=== PATIENT | female | born 1985 ===

== ENCOUNTER 2019-11-27 15:23 | Emergency (ER) | payer OTHER ==
--- NOTE | 2019-11-27 15:54 | UC ---
Lower Extremity/Ankle HPI - HPI Summary HPI Summary: 33 yo female presents with RIGHT 5th toe injury. 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 Toenail bent backwards and started bleeding. She bandaged the area and came to . Currently is ambulatory with little pain. Pain at toenail, but no toe pain. - History of Current Complaint Stated Complaint: TOE INJURY Time Seen by Provider: 11/27/19 15:54 Hx Obtained From: Patient Onset/Duration: Sudden Onset Severity Initially: Moderate Severity Currently: Mild Pain Intensity: 2 Pain Scale Used: 0-10 Numeric - Allergies/Home Medications Allergies/Adverse Reactions: Allergies Allergy/AdvReac Type Severity Reaction Status Date / Time No Known Allergies Allergy Verified 11/27/19 16:02 Home Medications: Home Medications Oral Control 1 tab PO DAILY 11/27/19 [History Confirmed 11/27/19] PMH/Surg Hx/FS Hx/Imm Hx - Additional Past Medical History Additional PMH: None - Surgical History Surgical History: None - Family History Known Family History: Positive: None - Social History Occupation: Employed Full-time Lives: With Family Alcohol Use: Occasionally Substance Use Type: None Smoking Status (MU): Never Smoked Tobacco Review of Systems All Other Systems Reviewed And Are Negative: No Constitutional: Positive: Negative Skin: Positive: Negative Respiratory: Positive: Negative Cardiovascular: Positive: Negative Neurovascular: Positive: Negative Musculoskeletal: Positive: Other: - Toe injury Neurological/Mental Status: Positive: Negative Psychological: Positive: Negative Physical Exam - Summary Physical Exam Summary: GENERAL: NAD. WDWN. No pain distress. SKIN: See MSK CHEST: No accessory muscle use. Breathing comfortably and in no distress. CV: Pulses intact PT and DP. Cap refill <2seconds MSK: RIGHT 5th toe: NTTP. FROM. Toenail with dried blood underneath. Distal 1/3 of toenail with break horizontal. Toenail stable and not loose. No cuticle disruption. NEURO: Alert. Sensations intact PSYCH: Age appropriate behavior. Triage Information Reviewed: Yes Vital Signs: Vital Signs: Temp Pulse Resp BP Pulse Ox 98.7 F 65 16 124/74 100 11/27/19 15:58 11/27/19 15:58 11/27/19 15:58 11/27/19 15:58 11/27/19 15:58 Oral Control 1 tab PO DAILY 11/27/19 [History Confirmed 11/27/19] Vital Signs Reviewed: Yes Lower Extremity Course/Dx - Course Course Of Treatment: Defer XR today as she has no toe pain and FROM. Nail cuticle intact. Site washes with saline today and bandaged with band-aid. Advised to RICE and keep clean. Apply bandage. Nail should grow out and be nearly normal appearing with time. Post op shoe provided for comfort - Differential Dx/Diagnosis Provider Diagnosis: Toenail avulsion Discharge ED - Sign-Out/Discharge Documenting (check all that apply): Patient Departure All imaging exams completed and their final reports reviewed: Yes - Discharge Plan Condition: Stable Disposition: HOME Patient Education Materials: Nail Avulsion (ED) Referrals: No Primary Care Phys,NOPCP [Primary Care Provider] - Additional Instructions: Change the band-aid on your toe daily until well healed The nail cuticle appears intact and the nail should grow out and appear near normal within a few months - Billing Disposition and Condition Condition: STABLE Disposition: Home
[2019-11-27 16:01] VITALS: BP 124/74
== END 2019-11-27 16:32 | disposition home or self-care (01) ==
LOC: UCEAST 15:23
DX: S91.209A Unspecified open wound of unspecified toe(s) with damage to nail, initial encounter (principal); X58.XXXA Exposure to other specified factors, initial encounter; Y93.01 Activity, walking, marching and hiking; Y92.9 Unspecified place or not applicable
CPT/HCPCS: 99213; G0463